=== PATIENT | male | born 1935 | race Caucasian/White ===

== ENCOUNTER 2024-07-16 08:29 | Emergency (ER) | payer MEDICARE, SELFPAY ==
[2024-07-16] VITALS (40 sets, daily range): BP systolic 106–167; BP diastolic 48–114; PULSE 71–87; TEMP 36.4; O2SAT 76–98; BMI 25.3
--- NOTE | 2024-07-16 08:57 | ECG_ITS ---
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 Measurements Intervals [place] Rate: 79 P: 61 W[place]: 132 QRS: 83 QRSD: 86 T: 62 QT: 378 QTc: 413 Interpretive Statements 1100 Sinus rhythm 9110 normal ECG Compared to ECG 10/21/2018 12:28:59 No significant changes Electronically Signed On 07-16-2024 18:04:12 EDT by MARCUS MOLINA M.D.
--- NOTE | 2024-07-16 08:57 | XR_ITS ---
The [place] [id number] Patient Name: HERNESTO ARIAS MRN: [id number] date: 1935 Sex: M Assigned Patient Location: ER Current Patient Location: ER Accession/Order Number: [id number] Exam Date: 07/16/2024 09:20 Report Date: 07/16/2024 09:22 At the request of: TONIA WRIGHT MD Procedure: XR chest 1V PORTABLE AP ERECT CHEST 0854 hours CLINICAL HISTORY: Nausea, cough and shortness of breath. COMPARISON: 10/21/2018 There is a large right pleural effusion encompassing the majority of the right hemithorax. Underlying parenchymal consolidation is likely. The left lung is clear. No pneumothorax is seen. The right heart border is obscured however the heart is not thought to be enlarged. No vascular congestion is suspected. The bony structures are intact. XR/XR chest 1V IMPRESSION: LARGE RIGHT PLEURAL EFFUSION WITH PROBABLE UNDERLYING PARENCHYMAL CHANGE. Impression dictated by: Sadaf Griffin M.D. 07/16/2024 9:22 AM Dictation Location: [place] [address] Electronically authenticated by: [id number] Y Date: 07/16/2024 09:22
--- NOTE | 2024-07-16 08:59 | ED_ITS ---
HPI HPI - General Adult General Chief complaint: Recheck/Abnormal Lab/Rx Stated complaint: SOB HIGH BLOOD SUGAR NAUSEA Time Seen by Provider: 07/16/24 08:31 Mode of arrival: walk-in History of Present Illness HPI narrative: 88-year-old male presents to the emergency department for nausea. He is a poor historian, his who is a nurse states that he is never forthcoming with physicians. She states that he tends to minimize his symptoms and is not revealing and what this going on with him. He states he is nauseous from his medications and his made an appointment for the patient to see his PCP tomorrow. He has not had a fever and does not complain of a headache or chest pain or abdominal pain. Related Data Home Medications ?Medication ?Instructions ?Recorded ?Confirmed aspirin 81 mg capsule 81 mg PO DAILY 07/16/2406/20 atorvastatin 20 mg tablet mg 07/16/24 lisinopril 10 mg tablet mg 07/16/24 metformin 500 mg tablet mg 07/16/24 metoprolol tartrate 100 mg tablet mg 07/16/24 Allergies Allergy/AdvReac Type Severity Reaction Status Date / Time No Known Drug Allergies Allergy Verified 07/16/24 08:34 Review of Systems ROS Narrative A ten point review of systems is negative except as noted above. PFSH PFSH Social History Little interest or pleasure in doing things: not at all Feeling down, depressed, or hopeless: not at all Exam Narrative Exam Narrative: Nurses note and vital signs reviewed and patient is not hypoxic. General: The patient appears in no apparent distress. Patient is resting comfortably on cart. Skin: Warm, dry, no pallor noted. There is no rash noted. Head: Normocephalic, atraumatic Eye: Normal conjunctiva, no drainage Ears, Nose, Mouth, and Throat: oral mucosa is moist. Nares patent. Cardiovascular: Regular Rate and Rhythm Respiratory: Patient is in no distress, no accessory muscle use, lungs are clear to auscultation, no wheezing, rales or rhonchi Back: non-tender GI: Soft and nontender Musculoskeletal: The patient has no evidence of calf tenderness, no pitting edema, symmetrical pulses noted bilaterally Neurological: Awake and alert Psychiatric: Cooperative, reluctant historian Constitutional Vital Signs, click to edit/add: Last Vital Signs Temp 97.6 F 07/16/24 08:37 Pulse 83 05/28/25 12:50 Resp 27 H 07/16/24 12:50 BP 149/114 H 07/16/24 12:45 Pulse Ox 97 07/16/24 12:50 O2 Del Method Room Air 07/16/24 08:37 Course Vital Signs Vital signs: Vital Signs Temperature 97.6 F 07/16/24 08:37 Pulse Rate 86 07/16/24 08:37 Respiratory Rate 18 07/16/24 08:37 Blood Pressure 167/73 H 07/16/24 08:37 Pulse Oximetry 97 07/16/24 08:37 Oxygen Delivery Method Room Air 07/16/24 08:37 Temperature 97.6 F 07/16/24 08:37 Pulse Rate 83 07/16/24 12:50 Respiratory Rate 27 H 07/16/24 12:50 Blood Pressure 149/114 H 07/16/24 12:45 Pulse Oximetry 97 07/16/24 12:50 Oxygen Delivery Method Room Air 07/16/24 08:37 Medical Decision Making MDM Narrative Medical decision making narrative: Pleural effusion was identified and Dr. De Jesus was available and saw the patient here and has performed thoracentesis. Pathology pending. The patient is feeling improved in terms of his breathing and he is discharged home. Treatment diagnosis and follow-up were discussed with the patient and his family. Differential Diagnosis Differential Diagnosis: Pleural effusion, pneumonia, lung cancer Lab Data Lab results reviewed: Yes I reviewed the patient's lab results Labs: Lab Results 07/16/24 07/16/24 07/16/24 Range/Units 09:00 09:01 10:40 WBC 8.2 (4.0-11.0) 10^3/uL RBC 4.83 (4.70-6.10) 10^6/uL Hgb 15.2 (14.0-18.0) g/dL Hct 45.5 (42.0-54.0) % MCV 94.2 H (80.0-94.0) fL MCH 31.5 (25.9-34.0) pg MCHC 33.4 (29.9-35.2) g/dL RDW 12.2 (11.0-15.0) % Plt Count 143 L (150-450) 10^3/uL MPV 10.4 (9.5-13.5) fL Neut % (Auto) 59.4 (43.0-75.0) % Lymph % (Auto) 28.7 (20.5-60.0) % Coffey % (Auto) 9.1 (1.7-12.0) % Eos % (Auto) 2.0 (0.9-7.0) % Baso % (Auto) 0.4 (0.2-2.0) % Neut # (Auto) 4.9 (1.4-6.5) 10^3/uL Lymph # (Auto) 2.3 (1.2-3.8) 10^3/uL Coffey # (Auto) 0.7 (0.3-0.8) 10^3/uL Eos # (Auto) 0.2 (0.0-0.7) 10^3/uL Baso # (Auto) 0.0 (0.0-0.1) 10^3/uL Abs Immat Gran (auto) 0.03 (0.00-0.03) 10^3/uL Imm/Tot Granulo (auto) 0.4 (0.0-0.5) % Sodium 146 H (136-145) mmol/L Potassium 4.2 (3.5-5.1) mmol/L Chloride 108 H (98-107) mmol/L Carbon Dioxide 25.9 (21.0-32.0) mmol/L Anion Gap 16.3 BUN 27.0 H (7.0-18.0) mg/dL Creatinine 1.37 H (0.70-1.30) mg/dL Est GFR ( Amer) 60 (>=60 mL/min/1.73m^2) Est GFR (Non-Af Amer) 49 L (>=60 mL/min/1.73m^2) BUN/Creatinine Ratio 19.7 Glucose 206 H (74-106) mg/dL Calcium 9.2 (8.5-10.1) mg/dL Total Bilirubin 0.4 (0.2-1.0) mg/dL Direct Bilirubin 0.1 (0.0-0.2) mg/dL AST 25 (15-37) U/L ALT 35 (16-63) U/L Alkaline Phosphatase 106 (46-116) U/L Total Protein 6.7 (6.4-8.2) g/dL Albumin 3.3 L (3.4-5.0) g/dL Globulin 3.4 g/dL Albumin/Globulin Ratio 1.0 Free T4 1.12 (0.76-1.46) ng/dL TSH & Free T4 Interp 4.913 H (0.358-3.740) uIU/mL Urine Color Lt. yellow (YELLOW) Urine Clarity Clear (CLEAR) Urine pH 5.5 (5.0-9.0) Ur Specific [place] 1.010 (1.005-1.025) Urine Protein Negative (NEG/TRACE) mg/dL Urine Glucose (UA) Negative (NEGATIVE) mg/dL Urine Ketones Negative (NEGATIVE) mg/dL Urine Occult Blood Negative (NEGATIVE) Urine Nitrite Negative (NEGATIVE) Urine Bilirubin Negative (NEGATIVE) Urine Urobilinogen 0.2 (0.2-1.0) EU/dL Ur Leukocyte Esterase Negative (NEGATIVE) Urine RBC None seen (0-2) #/HPF Urine WBC 0-2 A (NONE SEEN) #/HPF Ur Squamous Epith Cells Rare (NONE/RARE) #/LPF Urine Crystals None seen (None Seen) #/HPF Urine Bacteria None seen (NONE SEEN) #/HPF Urine Casts Seen A (NONE SEEN) #/LPF Hyaline Casts Rare Urine Mucus None seen (NONE SEEN) Ur Culture Indicated? No POC Glucose 192 H (74-106) mg/dL Imaging Data Chest x-ray: My impression: Repeat chest x-ray on my interpretation shows less pleural effusion and no pneumothorax Radiologist's impression: ITS Impressions Chest X-Ray 07/16/24 08:57 IMPRESSION: LARGE RIGHT PLEURAL EFFUSION WITH PROBABLE UNDERLYING PARENCHYMAL CHANGE. Impression dictated by: Sadaf Griffin M.D. 07/16/2024 9:22 AM Dictation Location: [facility] Electronically authenticated by: [id number] Y Date: 07/16/2024 09:[address] 07/16/24 09:18 IMPRESSION: LARGE RIGHT PLEURAL EFFUSION WITH CONSOLIDATION OF MOST OF THE LUNG. CALCIFIED PLEURAL PLAQUE BILATERALLY. Impression dictated by: Sadaf Griffin M.D. 07/16/2024 10:09 AM Dictation Location: DataEmail GroupUN[facility]ERSAL [facility]ALTH SERVICES Electronically authenticated by: [id number] Y Date: 07/16/2024 10:09 ECG Data Attestation: I personally reviewed and interpreted this ECG as follows: (EKG on my interpretation shows sinus rhythm with rate of 79 and no acute change) Discharge Plan Discharge Chief Complaint: Recheck/Abnormal Lab/Rx Clinical Impression: Pleural effusion Patient Disposition: Home, Self-Care Time of Disposition Decision: 13:07 Condition: Good Mode of Transportation: Private Vehicle Prescriptions / Home Meds: No Action metformin 500 mg tablet atorvastatin 20 mg tablet metoprolol tartrate 100 mg tablet lisinopril 10 mg tablet aspirin 81 mg capsule 81 mg PO DAILY Patient Comments: take 2 daily Print Language: Iranian Instructions: Pleural Effusion (DC), Thoracentesis (DC) Referrals: Jasper De Jesus DO [Physician, Pulmonology] - 07/31/24 8:00 am Physician,Non-Staff, MD [Primary Care Provider] - 1 week
[2024-07-16 09:03] LABS: Glucometer 192 mg/dL (74-106)
[2024-07-16 09:15] LABS: Basophils Percent Auto 0.4 % (0.2-2.0); Eosinophils Absolute Auto 0.2 10^3/uL (0.0-0.7); Hematocrit 45.5 % (42.0-54.0); Hemoglobin 15.2 g/dL (14.0-18.0); Immature Granulocytes Abs Auto 0.03 10^3/uL (0.00-0.03); Immature Granulocytes Pct Auto 0.4 % (0.0-0.5); Lymphocytes Absolute Auto 2.3 10^3/uL (1.2-3.8); Lymphocytes Percent Auto 28.7 % (20.5-60.0); Mean Corpuscular HGB Conc 33.4 g/dL (29.9-35.2); Mean Corpuscular Hemoglobin 31.5 pg (25.9-34.0); Mean Corpuscular Volume 94.2 fL (80.0-94.0); Mean Platelet Volume 10.4 fL (9.5-13.5); Monocytes Absolute Auto 0.7 10^3/uL (0.3-0.8); Monocytes Percent Auto 9.1 % (1.7-12.0); Neutrophils Absolute Auto 4.9 10^3/uL (1.4-6.5); Neutrophils Percent Auto 59.4 % (43.0-75.0); Platelet Count 143 10^3/uL (150-450); Red Blood Count 4.83 10^6/uL (4.70-6.10); Red Cell Distribution Width 12.2 % (11.0-15.0); White Blood Count 8.2 10^3/uL (4.0-11.0)
--- NOTE | 2024-07-16 09:18 | CT_ITS ---
The [address] [address] Patient Name: HERNESTO ARIAS MRN: [id number] date: 1935 Sex: M Assigned Patient Location: ER Current Patient Location: Accession/Order Number: [id number] Exam Date: 07/16/2024 10:02 Report Date: 07/16/2024 10:09 At the request of: TONIA WRIGHT MD Procedure: CT chest w con CT CHEST WITH INTRAVENOUS CONTRAST: CLINICAL HISTORY: Right-sided pleural-parenchymal opacity on chest x-ray. Shortness of breath and dizziness. COMPARISON: Chest x-ray 07/08/2024 TECHNIQUE: Spiral images were obtained through the chest following intravenous administration of 100 mL of Omnipaque 300. Images were reviewed using both narrow and wide window settings. This CT exam was performed using one or more following dose reduction techniques: Automated exposure control, adjustment of the mA and/or kV according to patient size, or use of iterative reconstruction technique. FINDINGS: The heart is not enlarged. There is no pericardial effusion. Coronary artery disease is seen. No aortic aneurysm or dissection is noted. Atherosclerotic plaque is present at the aortic arch, descending aorta and proximal great vessels. There is no mediastinal or obvious hilar lymphadenopathy. The bony structures are intact. Endplate spurring is present at the spine. Calcified pleural plaque is seen bilaterally. There is a very large right pleural effusion. There is aeration of a portion of the right upper lobe though the remainder of the lung is collapsed. There may be some mucous plugging on the right, greater at the base. There is minor dependent atelectasis on the left. No pneumothorax is identified. No pulmonary nodularity is seen. Limited cuts through the upper abdomen show possible fatty liver. CT/CT chest w con IMPRESSION: LARGE RIGHT PLEURAL EFFUSION WITH CONSOLIDATION OF MOST OF THE LUNG. CALCIFIED PLEURAL PLAQUE BILATERALLY. Impression dictated by: Sadaf Griffin M.D. 07/16/2024 10:09 AM Dictation Location: [place] [address] Electronically authenticated by: [id number] Y Date: 07/16/2024 10:09
[2024-07-16] MEDS: ONDANSETRON PF 4 MG/2 ML VIAL IV (09:20)
[2024-07-16] MEDS: 0.9 % SODIUM CHLORIDE 500 ML IV (09:20)
[2024-07-16 09:24] LABS: Anion Gap 16.3; BUN Creatinine Ratio 19.7; Calcium 9.2 mg/dL (8.5-10.1); Carbon Dioxide 25.9 mmol/L (21.0-32.0); Chloride 108 mmol/L (98-107); Estimated GFR (African America 60 (>=60 mL/min/1.73m^2); Estimated GFR (Non-African Ame 49 (>=60 mL/min/1.73m^2); Glucose 206 mg/dL (74-106); Potassium 4.2 mmol/L (3.5-5.1); Sodium 146 mmol/L (136-145)
[2024-07-16 09:30] LABS: Alanine Aminotransferase 35 U/L (16-63); Albumin Level 3.3 g/dL (3.4-5.0); Alkaline Phosphatase 106 U/L (46-116); Aspartate Amino Transferase 25 U/L (15-37); Bilirubin Direct 0.1 mg/dL (0.0-0.2); Bilirubin Total 0.4 mg/dL (0.2-1.0); Globulin 3.4 g/dL; Total Protein 6.7 g/dL (6.4-8.2)
[2024-07-16 09:50] LABS: TSH W/ REFLEX FT4 4.913 uIU/mL (0.358-3.740)
[2024-07-16 10:09] LABS: Free T4 1.12 ng/dL (0.76-1.46)
[2024-07-16 10:47] LABS: Bilirubin Urine NEGATIVE (NEGATIVE); Blood Urine NEGATIVE (NEGATIVE); Clarity Urine CLEAR (CLEAR); Color Urine LT. YELLOW (YELLOW); Glucose Urine UA NEGATIVE (NEGATIVE); Ketones Urine NEGATIVE (NEGATIVE); Leukocyte Esterase Urine NEGATIVE (NEGATIVE); Nitrite Urine NEGATIVE (NEGATIVE); Protein Urine NEGATIVE (NEG/TRACE); Urobilinogen Urine 0.2 EU/dL (0.2-1.0); pH Urine 5.5 (5.0-9.0)
[2024-07-16 10:57] LABS: Bacteria Urine NONE SEEN #/HPF (NONE SEEN); Cast Seen? SEEN #/LPF (NONE SEEN); Crystals Seen? None Seen #/HPF (None Seen); Hyaline Casts Urine RARE; Mucus Urine NONE SEEN (NONE SEEN); RBC Urine NONE SEEN #/HPF (0-2); Squamous Epithelial Cell Urine RARE #/LPF (NONE/RARE); Urine Culture Indicated NO; WBC Urine 0-2 #/HPF (NONE SEEN)
--- NOTE | 2024-07-16 12:52 | XR_ITS ---
The [address] [address] Patient Name: HERNESTO ARIAS MRN: [id number] date: 1935 Sex: M Assigned Patient Location: ER Current Patient Location: ED.MAIN Accession/Order Number: [id number] Exam Date: 07/16/2024 13:16 Report Date: 07/16/2024 13:20 At the request of: TONIA WRIGHT MD Procedure: XR chest 1V PORTABLE AP ERECT CHEST 1245 hours CLINICAL HISTORY: Follow-up after right thoracentesis COMPARISON: 07/08/2024 chest x-ray and CT There is still a moderate to large size right pleural effusion though there is decrease in volume since the comparison following thoracentesis. There is improved aeration of the right upper lung though residual consolidation at the bases is still suspected. There is atelectasis at the left base with apparent worsening that may in part relate to incomplete inspiration. No obvious pneumothorax is seen. The visualized cardiac and mediastinal contours are similar. No acute osseous abnormalities are seen. XR/XR chest 1V IMPRESSION: IMPROVING PLEURAL-PARENCHYMAL CHANGE ON THE RIGHT FOLLOWING THORACENTESIS. SLIGHT INCREASE IN LEFT BASILAR ATELECTASIS THAT MAY RELATE TO INCOMPLETE INSPIRATION. NO POSTPROCEDURE PNEUMOTHORAX. Impression dictated by: Sdaaf Griffin M.D. 07/16/2024 1:20 PM Dictation Location: [place] [address] Electronically authenticated by: [id number] Y Date: 07/16/2024 13:20
--- NOTE | 2024-07-16 12:59 | PM.PLCN ---
History of Present Illness History of Present Illness Consult date: 07/16/24 Requesting physician: Jordan Ivan Reason for consult: pleural effusion (right) Chief complaint: SOB HIGH BLOOD SUGAR NAUSEA Narrative: 88yo male presented to [facility] ER this AM with dyspnea and fatigue. Symptoms have been slowly worsening over weeks. He is a lifelong non-smoker and has no known underlying pulmonary disease. Imaging (CXR and CT chest) revealed a huge right pleural effusion. No history of recent illness or any underlying CHF, hepatic cirrhosis, or nephrotic syndrome. I was contacted by Dr. Ivan for recommendations. Given the size of the effusion, I recommended thoracentesis which I had availablity to perform today. Patient was seen and evaluated in the ER. He worked for [employer], but cannot definitively tell me he was exposed to any asbestos. 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 Review of Systems ROS Status of ROS 10 or more systems reviewed and unremarkable except as noted in history and below (Dyspnea, dry cough, fatigue, malaise, decreased appetite, weight loss) PFSH PFS Social History Little interest or pleasure in doing things: not at all Feeling down, depressed, or hopeless: not at all Meds Home Medications and Allergies Home Medications ?Medication ?Instructions ?Recorded ?Confirmed ?Type aspirin 81 mg capsule 81 mg PO DAILY 07/16/24 07/16/24 History atorvastatin 20 mg tablet mg 07/16/24 History lisinopril 10 mg tablet mg 07/16/24 History metformin 500 mg tablet mg 07/16/24 History metoprolol tartrate 100 mg tablet mg 07/16/24 History Allergies Allergy/AdvReac Type Severity Reaction Status Date / Time No Known Drug Allergies Allergy Verified 07/16/24 08:34 Exam Narrative Exam Narrative: Appears his age of 88 No acute distress Breathing shallow No breath sounds on right Dullness to percussion on right Muffled, but not true egophony, on the right Decreased tactile fremitus on the right RRR Abdomen soft No edema Pleasant affect Hard of hearing? Constitutional Vital Signs, click to edit/add: Last Vital Signs Temp 97.6 F 07/16/24 08:37 Pulse 76 07/16/24 12:10 Resp 20 07/16/24 12:10 BP 122/63 07/16/24 12:00 Pulse Ox 95 07/16/24 12:10 O2 Del Method Room Air 05/28/25 08:37 Results Laboratory Findings Abnormal lab findings: Abnormal Labs 07/16/24 07/16/24 07/16/24 09:00 09:01 10:40 MCV 94.2 H Plt Count 143 L Sodium 146 H Chloride 108 H BUN 27.0 H Creatinine 1.37 H Est GFR (Non-Af Amer) 49 L Glucose 206 H Albumin 3.3 L TSH & Free T4 Interp 4.913 H Urine WBC 0-2 A Urine Casts Seen A POC Glucose 192 H Assessment and Plan Assessment and Plan (1) Pleural effusion: Assessment and Plan: 1. Huge right pleural effusion. Minimal aeration of RUL, remainder has compressive consolidation. A unilateral pleural effusion without underlying history of CHF is highly concerning for neoplasm. Given the size of the effusion, recommended diagnostic and therapeutic US-guided thoracentesis. Risks of thoracentesis were reviewed, including, but not limited to: Pneumothorax, pain, bleeding, infection. Given the size of this effusion, I suspect that it has been present for at least weeks. With this timeframe, explained there are risks of adhesions - with rapid removal of fluid, there is increased risk for pneumothorax (not from poking the lung, but from rupture from adhesions), and a risk of re-expansion pulmonary edema. I stated if the patient began complaining of dyspnea or coughing, I would stop immediately. Patient voiced agreement to proceed and informed consent was personally obtained. 1375mL were removed from right hemithorax - procedure was stopped d/t coughing. Fluid was clear. I personally walked the pleural fluid down to lab and completed the pathology requisition form with aid from laboratory staff. Ordering additional labs including cultures and other studies. CXR post-procedure was ordered - results are pending. Anticipate no pneumothorax - if none present, he may be discharged home. F/U appointment scheduled for 07/31/2024 @ 8AM in my office to review path and results. 2. Bilateral pleural plaques. Suggestive of prior asbestos exposure. Patient does not recall any obvious exposure. If he were exposed to asbestos, possible pleural effusion could be secondary to mesothelioma, though no obvious pleural masses or lesions were noted on the right (which could have been obscured by the pleural fluid.
--- NOTE | 2024-07-16 13:13 | P.ON_ITS ---
Date of procedure: 07/16/24 Procedure: Procedure: Diagnostic & therapeutic ultrasound-guided right-sided thoracentesis Pre/Post-Diagnosis: Huge right pleural effusion Surgeon: Jasper De Jesus DO Anesthesia: Lidocaine 1% 10mL Estimated Blood Loss: <1mL Specimens: 1375mL pleural fluid sent for analysis Complications: None Consent: Informed consent was obtained after risks, benefits, and alternatives were discussed with the patient. Time out was initiated to confirm the correct patient, site, and procedure with all present voicing in the affirmative. Procedure: The patient was placed in the seated position in the hospital bed. Ultrasound was utilized to identify the hemidiaphragm and a huge pleural fluid on the right. An appropriate drainage site was marked via indentation based on anatomical landmarks and the ultrasound findings. Chloraprep was used to mark nse the lower hemithorax. Sterile drapes were applied. Lidocaine 1% 10mL was injected, first as superficial skin wheal, and then using aspiration technique, advanced over the superior aspect of the lower rib subcutaneously at the periosteum and then parietal pleura. Easy return of straw-colored pleural fluid was aspirated. Next, a small incision was made to the anesthetized area with the blade provided in the prepackaged thoracentesis kit. Hemostasis was achieved. A ebhqfsta-[id number]-lljzsc apparatus was advanced as a unit over the superior aspect of the lower rib into the pleural space with great care to prevent further progression of the needle into the pleural cavity. The needle was then retracted completely and discarded. A vacuum collection system was attached to the catheter and pleural fluid was collected for analysis. A total of 1375mL of pleural fluid was removed. The procedure was terminated due to patient coughing. The catheter was then removed during an expiratory breath- hold maneuver. The patient tolerated the procedure well. A post-procedural portable chest x-ray was ordered to assess adequacy of pleural fluid drainage and to evaluate for iatrogenic pneumothorax; results are pending at the time of this report. Surgeon: Jasper De Jesus Condition: stable Disposition: same day
[2024-07-16 14:19] LABS: BOX Test Reference Lab CLEVELAND CLINIC; BOX Test Sent Out PH BODY FLUID
[2024-07-17 13:08] LABS: Clarity, Serous Clear (Clear); Color, Serous Yellow (.); Eosinophils, Serous 0 % (Not Estab.); Lining Cells, Serous 12 % (Not Estab.); Lymphocytes, Serous 39 % (Not Estab.); Macrophages, Serous 47 % (Not Estab.); Neut, Serous 2 % (0-24); Nucleated Cells, Serous 76 /mm3 (0-499); RBC, Serous Rare /uL (Not Estab.)
[2024-07-17 15:08] LABS: Amylase, Body Fluid 33 U/L (.); Glucose, Body Fluid 94 mg/dL (.); LD, Body Fluid 149 IU/L (.); Protein, Body Fluid 4.3 g/dL (.); Triglycerides, Fluid 27 mg/dL (Not Estab.)
== END 2024-07-16 13:37 | disposition home or self-care (01) ==
PROVIDERS: Internal Medicine; Emergency Provider Emergency Medicine
DX: J90 Pleural effusion, not elsewhere classified (principal); R06.02 Shortness of breath; R11.0 Nausea; R53.83 Other fatigue; R53.81 Other malaise; R63.4 Abnormal weight loss; Z79.82 Long term (current) use of aspirin; Z79.84 Long term (current) use of oral hypoglycemic drugs
CPT/HCPCS: 32555; 36415; 71045; 71260; 80048; 80076; 81001; 82150; 82945; 82948; 83615; 83986; 84157; 84439; 84443; 84478; 85025; 87070; 87205; 88112; 88305; 88341; 88342; 89050; 89051; 93005; 96374; 99285; J2405; Q9967

== ENCOUNTER 2024-08-06 10:20 | Outpatient (RCR) | payer MEDICARE, SELFPAY ==
[2024-08-06] VITALS (7 sets, daily range): BP systolic 135–164; BP diastolic 61–90; PULSE 66–73; TEMP 36.6; O2SAT 94–99
--- NOTE | 2024-08-06 11:58 | XR_ITS ---
The [address] [address] Patient Name: HERNESTO ARIAS MRN: [id number] date: 1935 Sex: M Assigned Patient Location: [facility] Current Patient Location: [facility] Accession/Order Number: [id number] Exam Date: 08/06/2024 12:25 Report Date: 08/06/2024 12:31 At the request of: RADHA JOSEPH DO Procedure: XR chest 1V PORTABLE AP ERECT CHEST 1213 hours CLINICAL HISTORY: Follow-up right pleural effusion - s/p thoracentesis COMPARISON: 07/16/2024 chest x-ray and CT There is continued opacity at the right lung base where the hemidiaphragm is obscured. There is believed to be residual pleural effusion though underlying consolidation is also possible. There is interval improvement since the prior following thoracentesis. No postprocedure pneumothorax is identified on that side. The left lung is clear. Calcified pleural plaque is noted. The heart is not significantly enlarged. There are tiny endplate spurs. XR/XR chest 1V IMPRESSION: IMPROVEMENT OF RIGHT-SIDED PLEURAL-PARENCHYMAL CHANGE FOLLOWING THORACENTESIS. NO POSTPROCEDURE PNEUMOTHORAX. MILD CALCIFIED PLEURAL PLAQUE. Impression dictated by: Sadaf Griffin M.D. 08/06/2024 12:31 PM Dictation Location: [place] [address] Electronically authenticated by: [id number] Y Date: 08/06/2024 12:31
--- NOTE | 2024-08-06 11:59 | P.ON_ITS ---
Date of procedure: 08/06/24 Procedure: Procedure: Diagnostic & therapeutic ultrasound-guided right-sided thoracentesis Pre/Post-Diagnosis: Large right pleural effusion Surgeon: Jasper De Jesus DO Anesthesia: Lidocaine 1% 10mL Estimated Blood Loss: <1mL Specimens: Pleural fluid sent of analysis for pathology Complications: None Consent: Informed consent was obtained after risks, benefits, and alternatives were discussed with the patient. Time out was initiated to confirm the correct patient, site, and procedure with all present voicing in the affirmative. Procedure: The patient was placed in the seated position in the hospital bed. Ultrasound was utilized to identify the hemidiaphragm and pleural fluid on the right. Tongue sign was present on ultrasound, indicating a large right pleural effusion. An appropriate drainage site was marked via marking pen, based on anatomical landmarks and the ultrasound findings; area corresponded to prior thoracentesis incision site. Chloraprep was used to cleanse the lower right hemithorax. Sterile drapes were applied. Lidocaine 1% 10mL was injected, first as superficial skin wheal, and then using aspiration technique, advanced over the superior aspect of the lower rib subcutaneously at the periosteum and then p arietal pleura. Easy return of florin colored pleural fluid was aspirated. Next, a small incision was made to the anesthetized area with the blade provided in the prepackaged thoracentesis kit. Hemostasis was achieved. A bvhennxw-zosx-fosiav apparatus was advanced as a unit over the superior aspect of the lower rib into the pleural space with great care to prevent further progression of the needle into the pleural cavity. The needle was then retracted completely and discarded. A vacuum collection system was attached to the catheter and pleural fluid was collected for analysis. A total of 1275mL of pleural fluid was removed. The procedure was terminated due to coughing. The catheter was then removed during an expiratory breath-hold maneuver. The patient tolerated the procedure well. A post-procedural portable chest x-ray was ordered to assess adequacy of pleural fluid drainage and to evaluate for iatrogenic pneumothorax; results are pending at the time of this report.
--- NOTE | 2024-08-06 12:23 | PC.NURSE ---
1135: Time out completed at this time with this RN, Dr. De Jesus and patient. Pt. positioned to sitting position on side of bed, while leaning forward on pillow covered tray table. Using ultrasound guidance, Dr. De Jesus initiates right sided thoracentesis using sterile technique. 1275 ML clear florin colored fluid drained into Vacutainer. Pt. begins to cough several times at 1147, procedure stopped. Pt. without c/o dyspnea, pain or cont. cough. Thoracentesis catheter removed per Dr. De Jesus. Small amount of bleeding to site, pressure applied. Site covered with Bandaid. Re-positioned to supine fowlers position on bed. Given water. Denies needs or c/o. Relays comfort. at bedside t.o. procedure. 1220:Radiology in for CXR as ordered. Pleural fluid specimens taken to lab.
--- NOTE | 2024-08-06 12:37 | PC.NURSE ---
1230: No bleeding to bandaid on right post. back. No c/o dyspnea or pain. Awaiting CXR results.
== END 2024-08-07 07:43 | disposition home or self-care (01) ==
LOC: INF 10:20
PROVIDERS: Visit Provider Internal Medicine
DX: J90 Pleural effusion, not elsewhere classified (principal)
CPT/HCPCS: 32554; 71045